=== PATIENT | male | born 1965 | race Caucasian/White ===

== ENCOUNTER 2020-12-07 04:29 | Emergency (ER) | payer SELFPAY ==
[~2020-12-07] VITALS: Ht 182.9 cm; Wt 75.0 kg
[2020-12-07] MEDS ORDERED: SODIUM CHLORIDE 0.9% 1,000 ML IV ONE (05:00)
[2020-12-07 05:28] LABS: BASOPHILS % 0.6 % (0.0-2.0); EOSINOPHILS % 0.7 % (0.0-5.0); HEMATOCRIT. 41.3 % (42.0-52.0); HEMOGLOBIN. 13.9 g/dL (14.0-18.0); LYMPHOCYTES % 25.1 % (20.0-50.0); MEAN CORPUSCULAR HEMOGLOBIN 28.3 pg (28.0-32.0); MEAN PLATELET VOLUME 7.3 fl (7.4-10.4); MONOCYTES % 8.6 % (2.0-8.0); PLATELET 264 x1000/uL (130-400); RED BLOOD CELL COUNT 4.92 mill/uL (4.7-6.1); RED CELL DISTRIBUTION WIDTH 13.4 % (11.6-14.6)
[2020-12-07 05:31] LABS: CHLORIDE 104 mEq/L (98-107)
[2020-12-07 05:35] LABS: ETHANOL BLOOD < 10 mg/dL
[2020-12-07 06:25] LABS: *AMPHETAMINES SCREEN URINE PRESUMTIVE POSITIVE (NEGATIVE); *BARBITURATES SCREEN URINE NEGATIVE (NEGATIVE); *BENZODIAZEPINES SCREEN URINE NEGATIVE (NEGATIVE); *COCAINE SCREEN URINE NEGATIVE (NEGATIVE)
[2020-12-07 06:26] LABS: CANNABINOID URINE SCREEN PRESUMTIVE POSITIVE (NEGATIVE); METHADONE URINE SCREEN NEGATIVE (NEGATIVE); OPIATES URINE SCREEN NEGATIVE (NEGATIVE); PHENCYCLIDINE URINE SCREEN NEGATIVE (NEGATIVE)
[2020-12-07 09:39] VITALS: BP 151/90
== END 2020-12-07 09:40 | disposition home or self-care (01) ==
LOC: ER 04:29
DX: F15.129 Other stimulant abuse with intoxication, unspecified (principal); R41.82 Altered mental status, unspecified
CPT/HCPCS: 36415; 80053; 80305; 80307; 80320; 80329; 85025; 93005; 96360; 99284; J7030; G0480